=== PATIENT | female | born 1970 | race Hispanic/Latino ===

== ENCOUNTER 2023-05-05 23:33 | Emergency (ER) | payer BC ==
[2023-05-06 00:13] LABS: #Basophils 0.1 thou/uL (0.0-0.2); #Monocytes 0.5 thou/uL (0.11-0.59); #Neutrophils 7.1 thou/uL (1.40-6.50); %Basophils 0.6 % (0.0-1.0); %Eosinophils 0.3 % (0.0-10.0); %Lymphocytes 24.2 % (21.0-51.0); %Monocytes 5.2 % (0.0-10.0); %Neutrophils 69.4 % (42.0-75.0); Hemoglobin 13.2 g/dL (12.0-16.0); Mean Corpuscular HGB CONC 32.2 g/dL (32.0-36.0); Mean Corpuscular Hemoglobin 28.7 pg (27.0-31.0); Mean Corpuscular Volume 89.1 fl (78.0-98.0); Platelet Count 217 10x3/uL (130-400); RBC Distribution Width 12.6 % (11.5-14.5); White Blood Cell (WBC) Count 10.2 10x3/uL (4.8-10.8)
[2023-05-06 00:39] LABS: ALT (SGPT) 23 U/L (8-55); AST (SGOT) 13 U/L (5-34); Alkaline Phosphatase 116 U/L (40-110); Anion Gap 11 mmol/L (10-20); BUN (Urea Nitrogen) 12 mg/dL (9.8-20.1); Bilirubin, Total 0.2 mg/dL (0.2-1.2); Calc. Creatinine Clearance 0 mL/min (70-130); Calcium 9.5 mg/dL (7.8-10.44); Carbon Dioxide 25 mmol/L (22-29); Chloride 104 mmol/L (98-107); Estimated GFR 77; Globulin 3.4 g/dL (2.4-3.5); Glucose 233 mg/dL (70-105); Protein, Total 7.4 g/dL (6.0-8.3); Sodium 136 mmol/L (136-145)
[2023-05-06 00:50] LABS: Troponin I Less than 0.010 ng/mL (< 0.028)
== END 2023-05-06 01:24 | disposition home or self-care (01) ==
LOC: ERS 23:33
DX: R07.89 Other chest pain (principal); F43.9 Reaction to severe stress, unspecified; R73.9 Hyperglycemia, unspecified; Z75.8 Other problems related to medical facilities and other health care; Z59.6 Low income
CPT/HCPCS: 36415; 71045; 80053; 84484; 85025; 93005

== ENCOUNTER 2023-05-07 11:08 | Emergency (ER) | payer BC | END 2023-05-07 11:42 | disposition home or self-care (01) | LOC: ERS 11:08 | DX: M62.838 Other muscle spasm (principal); R05.9 Cough, unspecified | CPT/HCPCS: 99283 ==

== ENCOUNTER 2023-06-03 20:56 | Emergency (ER) | payer BC ==
[2023-06-03] MEDS ORDERED: Aspirin Chewable 81 MG TAB ONE (21:35)
[2023-06-03 21:45] LABS: #Basophils 0.1 thou/uL (0.0-0.2); #Monocytes 0.5 thou/uL (0.11-0.59); %Basophils 0.5 % (0.0-1.0); %Eosinophils 0.2 % (0.0-10.0); %Monocytes 4.8 % (0.0-10.0); %Neutrophils 63.3 % (42.0-75.0); Hematocrit 41.3 % (36.0-47.0); Hemoglobin 13.6 g/dL (12.0-16.0); Mean Corpuscular HGB CONC 32.9 g/dL (32.0-36.0); Mean Corpuscular Hemoglobin 29.2 pg (27.0-31.0); Mean Corpuscular Volume 88.8 fl (78.0-98.0); Mean Platelet Volume 11.6 fL (7.4-10.4); Platelet Count 217 10x3/uL (130-400); RBC Distribution Width 12.6 % (11.5-14.5); Red Blood Cell (RBC) Count 4.65 mill/uL (4.20-5.40); White Blood Cell (WBC) Count 9.4 10x3/uL (4.8-10.8)
[2023-06-03 22:07] LABS: ALT (SGPT) 27 U/L (8-55); AST (SGOT) 15 U/L (5-34); Albumin 4.4 g/dL (3.5-5.0); Alkaline Phosphatase 110 U/L (40-110); Anion Gap 11 mmol/L (10-20); BUN (Urea Nitrogen) 14 mg/dL (9.8-20.1); Bilirubin, Total 0.4 mg/dL (0.2-1.2); Calc. Creatinine Clearance 0 mL/min (70-130); Calcium 10.2 mg/dL (7.8-10.44); Carbon Dioxide 27 mmol/L (22-29); Chloride 106 mmol/L (98-107); Estimated GFR 98; Globulin 3.2 g/dL (2.4-3.5); Glucose 99 mg/dL (70-105); Lipase 39 U/L (8-78); Potassium 3.5 mmol/L (3.5-5.1); Protein, Total 7.6 g/dL (6.0-8.3); Sodium 140 mmol/L (136-145)
[2023-06-03 22:09] LABS: Troponin I Less than 0.010 ng/mL (< 0.028)
[2023-06-04 00:59] LABS: Troponin I Less than 0.010 ng/mL (< 0.028)
== END 2023-06-04 01:27 | disposition home or self-care (01) ==
LOC: ERS 20:56
DX: R07.9 Chest pain, unspecified (principal); Z75.8 Other problems related to medical facilities and other health care
CPT/HCPCS: 36415; 36416; 71045; 80053; 83690; 83880; 84484; 85025; 85379; 93005

== ENCOUNTER 2023-06-19 08:38 | Outpatient (CLI) | payer BC | END 2023-06-19 08:39 | disposition home or self-care (01) | LOC: BICMAMMO 08:38 | PROVIDERS: ATTEND Nurse Practitioner Family | DX: Z12.31 Encounter for screening mammogram for malignant neoplasm of breast (principal) | CPT/HCPCS: 77063; 77067 ==

== ENCOUNTER 2024-04-22 17:43 | Emergency (ER) | payer BC ==
[2024-04-22 18:28] LABS: #Basophils 0.06 10x3/uL (0.0-0.2); %Basophils 0.7 % (0.0-1.0); %Eosinophils 0.8 % (0.0-10.0); %Lymphocytes 31.2 % (21.0-51.0); %Monocytes 7.2 % (0.0-10.0); Hematocrit 39.6 % (36.0-47.0); Hemoglobin 12.8 g/dL (12.0-16.0); Mean Corpuscular HGB CONC 32.3 g/dL (32.0-36.0); Mean Corpuscular Hemoglobin 28.1 pg (27.0-31.0); Mean Platelet Volume 11.4 fL (7.4-10.4); Platelet Count 220 10x3/uL (130-400); RBC Distribution Width 13.3 % (11.5-14.5); Red Blood Cell (RBC) Count 4.55 mill/uL (4.20-5.40)
[2024-04-22 18:47] LABS: ALT (SGPT) 13 U/L (Less than 34); AST (SGOT) 13 U/L (11-34); Albumin 3.6 g/dL (3.1-4.5); Alkaline Phosphatase 106 U/L (40-110); Anion Gap 14 mmol/L (10-20); BUN (Urea Nitrogen) 14 mg/dL (9.8-20.1); Bilirubin, Total 0.2 mg/dL (0.3-1.2); Calc. Creatinine Clearance 0 mL/min (70-130); Calcium 9.3 mg/dL (7.8-10.44); Carbon Dioxide 25 mmol/L (22-29); Chloride 107 mmol/L (98-107); Estimated GFR 108; Globulin 3.9 g/dL (2.4-3.5); Glucose 130 mg/dL (70-105); Potassium 4.2 mmol/L (3.5-5.1); Protein, Total 7.5 g/dL (6.0-8.3); Sodium 142 mmol/L (136-145)
[2024-04-22 18:52] LABS: Troponin I Less than 0.010 ng/mL (< 0.028)
[2024-04-22] MEDS ORDERED: Acetaminophen 500 MG TAB ONE (19:34)
== END 2024-04-22 20:47 | disposition home or self-care (01) ==
LOC: ERS 17:43
DX: R06.00 Dyspnea, unspecified (principal); E11.9 Type 2 diabetes mellitus without complications
CPT/HCPCS: 36415; 71045; 80053; 83880; 84484; 85025; 85379; 93005; 94760